=== PATIENT | male | born 1995 | race Caucasian/White ===

== ENCOUNTER 2017-06-26 11:02 | Emergency (ER) | payer BC ==
--- NOTE | 2017-06-26 13:39 | EDPHY ---
H & P Stated Complaint: epigastric pain Time Seen by Provider: 06/26/17 12:53 HPI/ROS: CHIEF COMPLAINT: Abdominal pain HISTORY OF PRESENT ILLNESS: 21-year-old male presents with abdominal pain. Onset of periumbilical abdominal pain yesterday while golfing. The pain was intermittent and transient. The pain tends to occur when he does sit-ups and when he turns to 1 side. No pain now. No associated symptoms. No prior similar symptoms. REVIEW OF SYSTEMS: complete 10 point ROS negative except at noted in the HPI - Personal History Current Tetanus/Diphtheria Vaccine: Yes Current Tetanus Diphtheria and Acellular Pertussis (TDAP): Yes - Medical/Surgical History Hx Asthma: No Hx Chronic Respiratory Disease: No Hx Diabetes: No Hx Cardiac Disease: No Hx Renal Disease: No Hx Cirrhosis: No Hx Alcoholism: No Hx HIV/AIDS: No Hx Splenectomy or Spleen Trauma: No Other PMH: LUE fx - Social History Smoking Status: Never smoked - Physical Exam Exam: General Appearance: Alert, pleasant Eyes: Pupils equal and round, no conjunctival pallor ENT, Mouth: Mucous membranes moist Neck: Normal inspection Respiratory: Lungs are clear to auscultation Cardiovascular: Regular rate and rhythm Gastrointestinal: Abdomen is soft and nontender, no periumbilical hernia palpable Neurological: A&O, nonfocal, normal gait Skin: Warm and dry Extremities: Normal inspection Psychiatric: Mood and affect normal Constitutional: Initial Vital Signs Temperature (C) 36.8 C 06/26/17 11:08 Heart Rate 54 L 06/26/17 11:08 Respiratory Rate 16 06/26/17 11:08 Blood Pressure 115/71 06/26/17 11:08 O2 Sat (%) 98 06/26/17 11:08 O2 Delivery Mode Room Air Allergies/Adverse Reactions: No Known Allergies Allergy (Unverified 06/26/17 11:08) Home Medications: Medication Instructions Recorded Miscellaneous Medical Supply [NO 1 ea MISC AD 10/26/11 HOME MEDS] Medical Decision Making ED Course/Re-evaluation: This patient presents with abdominal pain with a normal abdominal exam. Likely musculoskeletal etiology of pain. Abdominal pain precautions given. Differential Diagnosis: Differential diagnosis includes though it is not limited to appendicitis, cholecystitis, diverticulitis, pyelonephritis, bowel perforation, small bowel obstruction. Departure - Departure Disposition: Home, Routine, Self-Care Clinical Impression: Abdominal pain Qualifiers: Abdominal location: periumbilical Qualified Code(s): R10.33 - Periumbilical pain Condition: Good Instructions: Acute Abdominal Pain (ED) Additional Instructions: Sometimes we are unable to diagnose an obvious cause of abdominal pain in the Emergency Department. Based upon our evaluation today, we see no obvious explanation for your pain. Because more serious conditions can be difficult to diagnose early in the course of their presentation, we ask that you return to the Emergency Department in 12-24 hours for a recheck if you are still having pain. This is necessary to exclude the development of a more serious condition such as appendicitis or other intra-abdominal emergency. In the event your pain markedly increases before that time or you develop intractable vomiting or fever return to the Emergency Department immediately. Referrals: Kana Costello MD [Primary Care Provider] - As per Instructions
[2017-06-26 13:47] VITALS: BP 140/70
== END 2017-06-26 13:54 | disposition home or self-care (01) ==
DX: R10.33 Periumbilical pain (principal)